=== PATIENT | female | born 1935 | race Asian ===

== ENCOUNTER → 2017-10-20 | Outpatient (CLI) | payer MEDICARE, MEDICAID ==
[~2017-10-20] MED LIST: REGADENOSON 0.4 MG/5 ML SYRINGE ONE
== END | disposition home or self-care (01) ==
LOC: CFH 12:25
PROVIDERS: ATTEND Internal Medicine Cardiovascular Disease
DX: I10 Essential (primary) hypertension (principal); I08.2 Rheumatic disorders of both aortic and tricuspid valves
CPT/HCPCS: 78452; 93017; 93306; A9502; J2785

== ENCOUNTER → 2018-07-14 | Outpatient (CLI) | payer MEDICARE, MEDICAID | END | disposition home or self-care (01) | LOC: CFH 10:24 | PROVIDERS: ATTEND Family Medicine | DX: M81.0 Age-related osteoporosis without current pathological fracture (principal) | CPT/HCPCS: 77080 ==

== ENCOUNTER 2019-02-03 11:26 | Inpatient (IN) | payer MEDICARE, MEDICAID ==
[~2019-02-03] VITALS: Ht 152.4 cm; Wt 51.3 kg
--- NOTE | 2019-02-03 11:45 | NUR ---
PT SENT FROM URGENT CARE FOR ABNORMAL EKG. PT STATES SHE HAS BEEN HAVING CHEST PAIN ON AND OFF THAT GETS WORSE WHEN SHE STANDS AND WALKS AROUND AND BETTER WHEN SHE SITS DOWN. PT STATES SHE HAS BEEN NAUSEAS AND SOB WITH CHANGE IN VISION WITH THE PAIN WELL. PT RESTING ON GURNEY. PT'S DAUGHTER AT BEDSIDE. PT BEING ASSESSED BY MD NOW. PT CONNECTED TO MONITOR. LUX. DENIES CP AT THIS TIME.
[2019-02-03] MEDS ORDERED: ALEN70TA6 PO (11:50)
[2019-02-03] MEDS ORDERED: METO25TA35 PO (11:50)
[2019-02-03] MEDS ORDERED: CALCIUM (11:50)
[2019-02-03] MEDS ORDERED: VITAMIN D (11:50)
[2019-02-03] MEDS ORDERED: SIMV20TA3 PO (11:50)
--- NOTE | 2019-02-03 12:30 | NUR ---
BREAK RN: IV LOCK PLACED. BLOOD OBTAINED AND SENT TO LAB. PT REMAINS NSR ON MONITOR. PT AND FAMILY DENY ADDITIONAL NEEDS AT THIS TIME.
[2019-02-03 12:50] LABS: BASOPHILS # (AUTO) 0.03 x10^3/uL (0-0.1); BASOPHILS % (AUTO) 1 % (0-1); EOSINOPHILS # (AUTO) 0.02 x10^3/uL (0-0.4); EOSINOPHILS % (AUTO) 1 % (1-7); LYMPHOCYTES # (AUTO) 1.15 x10^3/uL (1-3.4); LYMPHOCYTES % (AUTO) 32 % (22-44); MD NO; MEAN CORPUSCULAR HEMOGLOBIN 32.6 pg (27.0-34.8); MEAN CORPUSCULAR HGB CONC 32.5 g/dL (32.4-35.8); MEAN CORPUSCULAR VOLUME 100.2 fL (80-100); MEAN PLATELET VOLUME 8.6 fL (7.4-10.4); MONOCYTES # (AUTO) 0.27 x10^3/uL (0.2-0.8); MONOCYTES % (AUTO) 8 % (2-9); NEUTROPHILS # (AUTO) 2.15 x10^3/uL (1.8-6.8); NEUTROPHILS % (AUTO) 59 % (42-75); PLATELET COUNT 128 x10^3/uL (130-400); RED BLOOD COUNT 3.95 x10^6/uL (3.82-5.3); RED CELL DISTRIBUTION WIDTH 13.6 % (9.6-15.2)
[2019-02-03 13:00] LABS: ALBUMIN 3.8 g/dL (3.4-5.0); ANION GAP 5 mmol/L (5-15); CALCIUM 8.7 mg/dL (8.5-10.1); CHLORIDE 108 mmol/L (98-107); CREATININE 0.72 mg/dL (0.55-1.02)
[2019-02-03] MEDS ORDERED: SODIUM CHLORIDE FLUSH 10ML SYR IVF ONE (13:00)
[2019-02-03 13:03] LABS: TROPONIN I < 0.015 ng/mL (0.000-0.045)
--- NOTE | 2019-02-03 13:57 | NUR ---
[facility] WAS AT BEDSIDE ASSESSING PT. PT RESTING ON THANIARTORO. LUX. VSS.
[2019-02-03] MEDS ORDERED: ONDANSETRON ODT 4 MG PO PRN (14:00)
[2019-02-03] MEDS ORDERED: METHOCARBAMOL 500 MG TABLET PO PRN (14:00)
[2019-02-03] MEDS ORDERED: ONDANSETRON 2MG/ML, 2ML IVPush PRN (14:00)
[2019-02-03] MEDS ORDERED: TRAZODONE 50MG TABLET PO PRN (14:00)
[2019-02-03] MEDS ORDERED: GUAIFENESIN/DM 200-20MG, 10ML UDC PO PRN (14:00)
[2019-02-03] MEDS ORDERED: ACETAMINOPHEN 325 MG TABLET PO PRN (14:00)
[2019-02-03] MEDS ORDERED: POLYETHYLENE GLYCOL 17 GM PACKET PO PRN (14:00)
[2019-02-03] MEDS ORDERED: hydrALAzine 20 MG/ML, 1ML IVPush PRN (14:00)
[2019-02-03] MEDS ORDERED: LACTATED RINGERS 1,000 ML IV SCH (14:00)
--- NOTE | 2019-02-03 14:14 | NUR ---
REPORT GIVEN TO FREYA HERNANDEZ.
[2019-02-03 14:45] VITALS: BP 151/76
[2019-02-03] MEDS: ENOXAPARIN 30 MG/0.3 ML SQ SCH (15:53)
--- NOTE | 2019-02-03 16:02 | NUR ---
REGULAR/THINS -Up for meals -Small bites -Alternate solids and liquids -Remain upright for 60 minutes after meal. Addendum: 02/03/19 at [address] Amended: Links added.
[2019-02-03 16:10] LABS: TROPONIN I < 0.015 ng/mL (0.000-0.045)
[2019-02-03] MEDS ORDERED: METO25TA91 PO (16:23)
[2019-02-03 21:59] VITALS: BP 135/75
[2019-02-03 22:05] LABS: TROPONIN I < 0.015 ng/mL (0.000-0.045)
[2019-02-04 02:11] VITALS: BP 122/56
[2019-02-04] MEDS: ENOXAPARIN 30 MG/0.3 ML SQ SCH (04:04)
[2019-02-04 05:43] LABS: CHLORIDE 113 mmol/L (98-107)
[2019-02-04 05:45] LABS: BASOPHILS # (AUTO) 0.02 x10^3/uL (0-0.1); BASOPHILS % (AUTO) 1 % (0-1); EOSINOPHILS # (AUTO) 0.05 x10^3/uL (0-0.4); EOSINOPHILS % (AUTO) 2 % (1-7); LYMPHOCYTES # (AUTO) 1.37 x10^3/uL (1-3.4); LYMPHOCYTES % (AUTO) 39 % (22-44); MD NO; MEAN CORPUSCULAR HGB CONC 33.3 g/dL (32.4-35.8); MEAN CORPUSCULAR VOLUME 102.1 fL (80-100); MEAN PLATELET VOLUME 9.1 fL (7.4-10.4); MONOCYTES # (AUTO) 0.31 x10^3/uL (0.2-0.8); MONOCYTES % (AUTO) 9 % (2-9); NEUTROPHILS # (AUTO) 1.76 x10^3/uL (1.8-6.8); NEUTROPHILS % (AUTO) 50 % (42-75); PLATELET COUNT 119 x10^3/uL (130-400); RED BLOOD COUNT 3.55 x10^6/uL (3.82-5.3); RED CELL DISTRIBUTION WIDTH 13.7 % (9.6-15.2)
[2019-02-04 05:51] LABS: ANION GAP 6 mmol/L (5-15); CALCIUM 8.5 mg/dL (8.5-10.1)
[2019-02-04 07:24] VITALS: BP 123/60
[2019-02-04] MEDS ORDERED: REGADENOSON 0.4 MG/5 ML SYRINGE ONE (08:05)
[2019-02-04 12:27] VITALS: BP 140/73
== END 2019-02-04 17:13 | disposition home or self-care (01) | DRG 311 ==
LOC: ED 13:18 → EDIP 13:30 → 5SO 14:24 → DCLOUNGE 02-04 17:06
PROVIDERS: ADMIT Family Medicine; ATTEND Internal Medicine
DX: I20.0 Unstable angina (principal); E78.5 Hyperlipidemia, unspecified; R13.10 Dysphagia, unspecified; I10 Essential (primary) hypertension; M81.0 Age-related osteoporosis without current pathological fracture; Z88.8 Allergy status to other drugs, medicaments and biological substances
CPT/HCPCS: 0399T; 36415; 71045; 78452; 80048; 82040; 83735; 83880; 84484; 85025; 85379; 93005; 93017; 93306; G0378; J1650; J2785; A9502; C9898; J7120

== ENCOUNTER → 2019-07-28 | Outpatient (CLI) | payer MEDICARE, MEDICAID ==
[~2019-07-28] MED LIST changes: +ALEN70TA6 PO; +CALCIUM; +METO25TA35 PO; +METO25TA91 PO; -REGADENOSON 0.4 MG/5 ML SYRINGE ONE; +SIMV20TA19 PO; +VITAMIN D
== END | disposition home or self-care (01) ==
LOC: RAD 12:46
PROVIDERS: ATTEND Internal Medicine Gastroenterology
DX: K21.9 Gastro-esophageal reflux disease without esophagitis (principal); R13.19 Other dysphagia; D69.6 Thrombocytopenia, unspecified; I25.10 Atherosclerotic heart disease of native coronary artery without angina pectoris; Q39.1 Atresia of esophagus with tracheo-esophageal fistula
CPT/HCPCS: 74220

== ENCOUNTER → 2019-10-31 | Outpatient (CLI) | payer MEDICARE, MEDICAID | END | disposition home or self-care (01) | LOC: CFH 13:44 | PROVIDERS: ATTEND Internal Medicine Cardiovascular Disease | DX: I08.8 Other rheumatic multiple valve diseases (principal); I10 Essential (primary) hypertension | CPT/HCPCS: 93306 ==